=== PATIENT | female | born 1950 | race Caucasian/White ===

== ENCOUNTER → 2017-10-05 | Outpatient (CLI) | payer OTHER ==
[~2017-10-05] MED LIST: CALCTAB5 PO; COEN1CAP PO; LEVOTHYROXINE; MAGNESIUM; MULT-506 PO; OMEG10007 PO; SIMV20TA2 PO; VITAMIN; VITAMIN B COMPLEX; VITAMIN D
== END | disposition home or self-care (01) ==
LOC: C.LABPBG 09:03
PROVIDERS: ATTEND Internal Medicine Endocrinology, Diabetes & Metabolism
DX: E89.0 Postprocedural hypothyroidism (principal)